=== PATIENT | female | born 1950 | race Caucasian/White ===

== ENCOUNTER 2017-11-07 12:07 | Emergency (ER) | payer BC ==
[~2017-11-07] VITALS: Ht 157.5 cm; Wt 74.8 kg
[2017-11-07 12:20] VITALS: Ht 157.5 cm; Wt 74.8 kg
[2017-11-07 16:05] VITALS: BP 132/71
== END 2017-11-07 16:05 | disposition home or self-care (01) ==
LOC: ED 12:07
DX: S22.089A Unspecified fracture of T11-T12 vertebra, initial encounter for closed fracture (principal); S00.03XA Contusion of scalp, initial encounter; S50.11XA Contusion of right forearm, initial encounter; S60.212A Contusion of left wrist, initial encounter; S80.12XA Contusion of left lower leg, initial encounter; S80.11XA Contusion of right lower leg, initial encounter; J45.909 Unspecified asthma, uncomplicated; I10 Essential (primary) hypertension; Y99.8 Other external cause status; Z88.0 Allergy status to penicillin; Z88.2 Allergy status to sulfonamides; W11.XXXA Fall on and from ladder, initial encounter; Y93.89 Activity, other specified; Y92.89 Other specified places as the place of occurrence of the external cause
CPT/HCPCS: J1170; J1885; Q0162

== ENCOUNTER 2017-11-09 17:08 | Inpatient (IN) | payer BC ==
[~2017-11-09] VITALS: Ht 157.5 cm; Wt 79.0 kg
[2017-11-09 18:32] LABS: BASOPHIL % 0.1 % (0-2); PLATELET COUNT 287 x10^3mcL (130-400); RED CELL DISTRIBUTION WIDTH 14.5 % (11.5-14.5)
[2017-11-09 18:44] LABS: CALCIUM 9.1 mg/dL (8.5-10.1); CARBON DIOXIDE 26.6 mmol/L (21-32); CHLORIDE SERUM 103 mmol/L (98-107); CREATININE SERUM 0.8 mg/dL (0.6-1.0); GFR1 > 60 mL/min; GLUCOSE SERUM 142 mg/dL (74-106); POTASSIUM SERUM 3.5 mmol/L (3.5-5.1); SODIUM SERUM 138 mmol/L (136-145)
[2017-11-09 18:53] LABS: ALBUMIN 3.4 g/dL (3.4-5.0); ALKALINE PHOSPHATASE 69 U/L (46-116); ALT/SGPT 31 U/L (14-59); AMYLASE 37 U/L (25-115); AST/SGOT 37 U/L (15-37); BILIRUBIN TOTAL 0.52 mg/dL (0.20-1.00); LIPASE 104 IU/L (73-393); TOTAL PROTEIN, SERUM 7.3 g/dL (6.4-8.2)
[2017-11-09 19:52] LABS: RED BLOOD CELLS 4.31 M/mm3 (4.10-5.10)
[2017-11-09] MEDS ORDERED: LOT10 PO (20:05)
[2017-11-09] MEDS ORDERED: CHLORTHALIDONE25 MG PO (20:05)
[2017-11-09 20:08] LABS: PHOSPHOROUS 2.7 mg/dL (2.5-4.9)
[2017-11-09 20:10] LABS: CHOLESTEROL/HDL RATIO 1.9
[2017-11-09 20:12] LABS: TOTAL IRON BINDING CAPACITY 370 ug/dL (250-450)
[2017-11-09 20:13] LABS: IRON 32 ug/dL (50-170)
[2017-11-09 20:15] LABS: FREE T4 1.18 ng/dL (0.76-1.46); T4(THYROXINE) 8.2 ug/dL (4.7-13.3)
[2017-11-09 20:31] LABS: T3 TOTAL 0.91 ng/mL
[2017-11-09 21:24] VITALS: BP 169/93
[2017-11-10 00:11] VITALS: BP 143/68
[2017-11-10 05:55] LABS: PLATELET COUNT 267 x10^3mcL (130-400); RED CELL DISTRIBUTION WIDTH 14.2 % (11.5-14.5)
[2017-11-10 06:03] VITALS: BP 145/76
[2017-11-10 06:19] LABS: CALCIUM 8.6 mg/dL (8.5-10.1); CARBON DIOXIDE 26.3 mmol/L (21-32); CHLORIDE SERUM 106 mmol/L (98-107); CREATININE SERUM 0.8 mg/dL (0.6-1.0); GFR1 > 60 mL/min; GLUCOSE SERUM 102 mg/dL (74-106); PHOSPHOROUS 3.4 mg/dL (2.5-4.9); POTASSIUM SERUM 3.2 mmol/L (3.5-5.1); SODIUM SERUM 142 mmol/L (136-145)
[2017-11-10 06:44] LABS: BASOPHIL % 0 % (0-2)
[2017-11-10 09:55] VITALS: BP 145/77
[2017-11-10 12:42] VITALS: Ht 157.5 cm; Wt 79.0 kg
[2017-11-10 13:13] VITALS: BP 149/79
[2017-11-10 13:24] LABS: UA SPECIFIC GRAVITY 1.015 (1.005-1.035); microscopic required? YES; urine erythrocyte NEGATIVE (NEGATIVE)
[2017-11-10 16:44] VITALS: BP 110/59
[2017-11-10 20:35] VITALS: BP 148/70
[2017-11-11 05:54] VITALS: BP 173/100
[2017-11-11 07:11] LABS: BASOPHIL % 0.3 % (0-2); PLATELET COUNT 270 x10^3mcL (130-400)
[2017-11-11 07:19] LABS: CALCIUM 8.5 mg/dL (8.5-10.1); CARBON DIOXIDE 25.7 mmol/L (21-32); CHLORIDE SERUM 107 mmol/L (98-107); CREATININE SERUM 0.8 mg/dL (0.6-1.0); GFR1 > 60 mL/min; GLUCOSE SERUM 96 mg/dL (74-106); MAGNESIUM 1.9 mg/dL (1.8-2.4); POTASSIUM SERUM 4.3 mmol/L (3.5-5.1); SODIUM SERUM 142 mmol/L (136-145)
[2017-11-11 07:31] LABS: RED CELL DISTRIBUTION WIDTH 14.9 % (11.5-14.5)
[2017-11-11 10:00] VITALS: BP 168/87
[2017-11-11 13:41] VITALS: BP 168/87
== END 2017-11-11 16:00 | disposition home health service (06) | DRG 89 ==
LOC: ED 17:08 → DU 19:18 → MU 11-10 14:37
PROVIDERS: Emergency Medicine; Family Medicine
DX: S06.0X0A Concussion without loss of consciousness, initial encounter (principal); S22.089A Unspecified fracture of T11-T12 vertebra, initial encounter for closed fracture; M50.322 Other cervical disc degeneration at C5-C6 level; M50.323 Other cervical disc degeneration at C6-C7 level; E87.6 Hypokalemia; R73.03 Prediabetes; I10 Essential (primary) hypertension; D64.9 Anemia, unspecified; J45.909 Unspecified asthma, uncomplicated; Z68.30 Body mass index [BMI] 30.0-30.9, adult; W17.89XA Other fall from one level to another, initial encounter; Y93.E3 Activity, vacuuming; Y92.018 Other place in single-family (private) house as the place of occurrence of the external cause
CPT/HCPCS: 82962; 83880; 84439; 94150; 97116-GP; J1885; J2405; J7030; J7620; J7633; Q0092